=== PATIENT | male | born 1985 | race Caucasian/White ===

== ENCOUNTER → 2023-03-26 | Outpatient (CLI) | payer OTHER, SELFPAY ==
[2023-03-26 17:35] LABS: Absolute Lymphocyte Count 2.02 X10^3/uL (0.83-4.51); Absolute Neutrophil Count 7.6 X10^3/uL (2.0-7.7); Basophil% 0.9 % (0-1); Eosinophil# 0.28 X10^3/uL; Eosinophils% 2.6 % (0-5); Hematocrit 46.7 % (40-54); Hemoglobin 15.2 g/dL (13.0-16.5); Lymphocyte # 2.02 X10^3/ul (0.83-4.51); Lymphocyte % 18.7 % (19-41); Mean Corp Hgb Conc 32.5 g/dL (32-36); Mean Corpuscular Volume 89.1 fL (80-94); Mean Platelet Vol. 10.2 fl (6.2-12.0); Monocyte# 0.71 X10^3/uL; Monocyte% 6.6 % (0-10); NRBC Flagged by Analyzer 0 % (0-5); Neutrophil # 7.64 X10^3/uL (2.7-7.7); Neutrophil % 70.8 % (47-70); Platelet Count 282 K/mm3 (150-450); RBC Distribution Width CV 13.4 % (11.6-14.6); RBC Distribution Width SD 43.9 fl (35.1-43.9); Red Blood Count 5.24 M/mm3 (4.6-6.2); White Blood Count 10.8 K/mm3 (4.4-11.0)
[2023-03-26 18:06] LABS: Vitamin D,25 Hydroxy 15.9 ng/mL
[2023-03-26 18:25] LABS: ALB/GLOB Ratio 0.8 RATIO (0.9-2.4); AST(SGOT) 27 U/L (15-37); Alanine Aminotransfer ALT/SGPT 51 U/L (16-61); Albumin, Serum 3.6 g/dL (3.2-5.0); Alkaline Phosphatase 107 U/L (45-117); Anion Gap 4 (5-15); BUN 12 mg/dL (7-18); BUN/Creat Ratio 12.4 RATIO (10-20); Calcium,Total 9.3 mg/dL (8.5-10.1); Chloride 111 mmol/L (98-107); Cholesterol 171 mg/dL (200); Creatinine, Serum 0.97 mg/dL (0.70-1.30); EST Glomerular Filtration Rate 92 mL/min (>60); Est Glom Filt Rate - Afr Amer 111 mL/min (>60); Globulin 4.6 g/dL (2.2-4.2); Glucose 109 mg/dL (74-106); High Density Lipoprotein 58 mg/dL; Protein, Total 8.2 g/dL (6.4-8.2); Sodium Level 140 mmol/L (136-145); Thyroid Stim Hormone (TSH) 2.09 uIU/mL (0.358-3.74); Triglycerides 60 mg/dL; Very Low Density Lipoprotein 12 mg/dL (5-40)
== END | disposition home or self-care (01) ==
PROVIDERS: PCP Family Medicine; Referring Provider Family Medicine; Visit Provider Family Medicine
DX: Z13.1 Encounter for screening for diabetes mellitus (principal); E66.01 Morbid (severe) obesity due to excess calories; Z13.220 Encounter for screening for lipoid disorders
CPT/HCPCS: 36415; 80053; 80061; 82306; 84443; 85025

== ENCOUNTER 2023-06-17 06:57 | Day surgery (SDC) | payer OTHER, SELFPAY ==
[2023-06-17] VITALS (7 sets, daily range): BP systolic 116–142; BP diastolic 79–87; PULSE 92–108; RESP 18; TEMP 36.6–36.7; O2SAT 95–96; BMI 61.4
[2023-06-17] MEDS: Lactated Ringers 1,000 ML 15 ML IV (07:36)
[2023-06-17 07:57] LABS: Bedside Glucose 142 mg/dL (74-106)
--- NOTE | 2023-06-17 08:00 | COLBX_PTH ---
PATIENT: YUDITH DOMINGUEZ LOC: EN U#:[id number] AGE/SX: 37/M ROOM: RE06/17/[address]: Dr. David Vick MD : 1985 BED: DIS: 06/17/2023 SPEC #: [id number] RECD: 06/17/23 13:10 STATUS: ANTOINE ALEXA #: [id number] VICKIE: 06/17/23 08:[address]: David Vick DEPT: SURGICAL PATHOLOGY RECD BY: Janina Trejo ENTERED: 06/17/23 13:35 SP TYPE: COLON BX OTHR DR: Deepika Salter MD Tissues: Rectum, NOS Procedures: Surgery Specimen Level IV HEADER OPERATION: Colonoscopy, polypectomy PRE-OP DIAGNOSIS: Family history of malignant neoplasm of colon TISSUE SUBMITTED: Rectal polyp MICROSCOPIC DIAGNOSIS Rectal polyp, polypectomy: Hyperplastic polyp. DANYELL:apola 06/18/2023 MICROSCOPIC DESCRIPTION Slides are reviewed. GROSS DESCRIPTION Received in fixative is one container labeled with the patient's name and designated rectal polyp. The specimen consists of one irregular fragment of light arriaga soft tissue that measures 0.5 x 0.5 x 0.1 cm. The specimen is totally submitted in one cassette. / SJ:paola 06/17/2023 TC:1 CPT: 81752
--- NOTE | 2023-06-17 08:32 | HP.PCM.SX_ITS ---
HPI - General HPI Narrative Patient is a 37-year-old male here for screening colonoscopy. He is considered high risk as his mother had colon cancer in her 40s. He has never had a colonoscopy. He has had blood in his stool before but he believes is due to hemorrhoids. He denies any abdominal pain. [facility] Medical History (Updated 06/13/23 @ 16:21 by Lily Carrera) Alcohol use Anxiety Depression Diabetes Former smoker Gastric reflux History of pain when walking Hypertension Marijuana use Migraine headache Shortness of breath on exertion Wears glasses Home Medications fluoxetine 20 mg capsule 20 mg PO DAILY 04/22/23 [History Last Taken Unknown] hydroxyzine HCl 50 mg tablet 50 mg PO TID PRN anxiety 04/22/23 [History Last Taken Unknown] ergocalciferol (vitamin D2) 1,250 mcg (50,000 unit) capsule 1,250 mcg PO WE 06/13/23 [History Last Taken Unknown] metformin 500 mg tablet 500 mg PO BID 06/13/23 [History Last Taken Unknown] Allergy/AdvReac Type Severity Reaction Status Date / Time No Known Allergies Allergy Verified 06/17/23 07:31 Family History (Updated 04/22/23 @ 13:11 by Livia Reis) Mother Colon cancer Breast cancer Father Cancer esophageal Surgical History (Updated 06/13/23 @ 16:21 by Lily Carrera) No history of previous surgery Social History (Updated 04/22/23 @ 13:31 by Livia Reis) Smoking Status: Former smoker substance use type: marijuana ROS Constitutional Constitutional: Denies anorexia, chills or fatigue ENT HEENT: Denies abnormal hearing Cardiovascular Cardiovascular: Denies chest pain Respiratory/Chest Respiratory/Chest: Denies cough or dyspnea Gastrointestinal Gastrointestinal: Denies abdominal pain, nausea or vomiting Genitourinary Genitourinary: Denies change in urinary stream Musculoskeletal Musculoskeletal: Denies abnormal gait Integumentary Integumentary: Denies jaundice Neurologic Neurologic: Denies abnormal gait Vital Signs Vital Signs Vital Signs: 06/17/23 07:25 06/17/23 07:25 Temperature 97.8 F Temperature Source Temporal Pulse Rate 108 H Respiratory Rate 18 Respiratory Pattern Normal Blood Pressure 142/87 H Blood Pressure Mean 105 Blood Pressure Source Monitor Blood Pressure Position Sitting Blood Pressure Location Right Forearm Pulse Ox 95 Oxygen Delivery Method Room Air Weight Weight: 491 lb 10.093 oz Body Mass Index (BMI) 61.4 Physical Exam Const alert and oriented x3 HEENT normocephalic Eyes PERRL Resp normal respiratory effort and normal air movement Cardio regular rate and regular rhythm GI soft to palpation, non-tender and non-distended Extremity normal to inspection Results Lab / Micro Data Labs: Laboratory Results - last 24 hr 06/17/23 07:25: POC Glucose 142 H Assessment & Plan Assessment/Plan (1) Family history of malignant neoplasm of colon in first degree relative diagnosed when younger than 60 years of age: PLAN: I explained endoscopy in detail to the patient. I explained the risks including but not limited to stroke or heart attack with anesthesia, perforation of the GI tract, bleeding, infection. I explained that any of these could necessitate further emergency surgery. The patient understands and all questions were answered sufficiently. The patient wishes to proceed with procedure. David Vick MD Pager: [facility] [address] [place] [address], [address] [place] [address] Office:
--- NOTE | 2023-06-17 09:01 | OP.CCLET_ITS ---
06/17/2023 Deepika Salter Md Re : Colonoscopy procedure for Chino Soto Dear Joie This procedure was performed on Saturday, June 17, 2023. My impressions and recommendations are as follows: Impressions : - The entire examined colon is normal. - One polyp in the rectum, removed with a hot snare. Resected and retrieved. Recommendations : - Discharge patient to home. - Resume previous diet. - Continue present medications. - Await pathology results. - Repeat colonoscopy in 5 years for surveillance. My findings are described in the full procedure note, which is enclosed. If I can be of further assistance, please feel free to contact me at Doctor phone number(s): , Work: . Sincerely, David Vick MD 06/17/2023 9:01:21 AM This report has been signed electronically.
--- NOTE | 2023-06-17 09:01 | OP.COLON_ITS ---
Patient Name: Chino Soto Procedure Date: 06/17/2023 8:39 AM Date of : 1985 Age: 37 Procedure: Colonoscopy Indications: Screening in patient at increased risk: Colorectal cancer in mother before age 60 Providers: David Vick MD Medicines: Monitored Anesthesia Care Patient Profile: This is a 37 year old male. Refer to note in patient chart for documentation of history and physical. Last Colonoscopy: none. The patient's first colonoscopy is today. Complications: No immediate complications. Estimated blood loss: Minimal. Procedure: Pre-Anesthesia Assessment: - Prior to the procedure, a History and Physical was performed, and patient medications and allergies were reviewed. The patient's tolerance of previous anesthesia was also reviewed. The risks and benefits of the procedure and the sedation options and risks were discussed with the patient. All questions were answered, and informed consent was obtained. Prior Anticoagulants: The patient has taken no anticoagulant or antiplatelet agents. After reviewing the risks and benefits, the patient was deemed in satisfactory condition to undergo the procedure. After I obtained informed consent, the scope was passed under direct vision. Throughout the procedure, the patient's blood pressure, pulse, and oxygen saturations were monitored continuously. The Colonoscope was introduced through the anus and advanced to the cecum, identified by appendiceal orifice and ileocecal valve. The colonoscopy was performed without difficulty. The patient tolerated the procedure well. The quality of the bowel preparation was good. The ileocecal valve, appendiceal orifice, and rectum were photographed. Scope In: 8:51:03 AM Scope Withdrawal Time 0 hours 5 minutes 6 seconds Scope Out: 8:58:08 AM Total Procedure Duration Time 0 hours 7 minutes 5 seconds Findings: The entire examined colon appeared normal. A polyp was found in the rectum. The polyp was removed with a hot snare. Resection and retrieval were complete. Impression: - The entire examined colon is normal. - One polyp in the rectum, removed with a hot snare. Resected and retrieved. Recommendation: - Discharge patient to home. - Resume previous diet. - Continue present medications. - Await pathology results. - Repeat colonoscopy in 5 years for surveillance. Procedure Code(s): --- Professional --- 67931, Colonoscopy, flexible; with removal of tumor(s), polyp(s), or other lesion(s) by snare technique Diagnosis Code(s): --- Professional --- Z80.0, Family history of malignant neoplasm of digestive organs D12.8, Benign neoplasm of rectum CPT copyright 2021 [employer]. All rights reserved. The codes documented in this report are preliminary and upon recovery advocate review may be revised to meet current compliance requirements. David Vick MD 06/17/2023 9:01:21 AM This report has been signed electronically. Number of Addenda: 0 Note Initiated On: 06/17/2023 8:39 AM
== END 2023-06-17 09:37 | disposition home or self-care (01) ==
LOC: EN 07:00 → AC 07:00
PROVIDERS: PCP Family Medicine; Referring Provider Family Medicine; Visit Provider Surgery
PROC: 0DJD8ZZ Inspection of Lower Intestinal Tract, Via Natural or Artificial Opening Endoscopic (ICD-10-PCS; CPT 45378; principal; 2023-06-17 07:55)
DX: Z12.11 Encounter for screening for malignant neoplasm of colon (principal); E11.9 Type 2 diabetes mellitus without complications; K62.1 Rectal polyp; F12.90 Cannabis use, unspecified, uncomplicated; F41.9 Anxiety disorder, unspecified; F32.A Depression, unspecified; Z79.84 Long term (current) use of oral hypoglycemic drugs; Z79.899 Other long term (current) drug therapy; Z80.0 Family history of malignant neoplasm of digestive organs; Z87.891 Personal history of nicotine dependence
CPT/HCPCS: 45385; 82962; 88305; J7120

== ENCOUNTER → 2024-11-23 | Outpatient (CLI) | payer OTHER, SELFPAY ==
--- NOTE | 2024-11-22 17:50 | LES_PTH ---
PATIENT: YUDITH DOMINGUEZ LOC: [facility] U#:[id number] AGE/SX: 39/M ROOM: RE11/23/[address]: Deepika Salter MD : 1985 BED: DIS: 11/23/2024 SPEC #: [id number] RECD: 11/23/24 09:00 STATUS: ANTOINE MIGUELLillian #: [id number] VICKIE: 11/22/24 17:[address]: Deepika Salter DEPT: SURGICAL PATHOLOGY RECD BY: Shahzad Jordan Tissues: A - Skin of back, NOS Procedures: Surgery Specimen Level IV HEADER OPERATION: Skin biopsy PRE-OP DIAGNOSIS: Skin mole TISSUE SUBMITTED: A- Skin mole of lower back MICROSCOPIC DIAGNOSIS A. Skin, lower back, mole, shave biopsy: * Intradermal melanocytic nevus MICROSCOPIC DESCRIPTION Slides are reviewed. GROSS DESCRIPTION A. Received in formalin in a container labeled with the patient's name, date of , and skin biopsy is an unoriented and irregular shave biopsy of arriaga-brown skin measuring 1.0 x 0.8 cm with a depth of 0.1 cm. The epidermis is notable for a arriaga-goncalves, wrinkled, and polypoid-like projection measuring 0.8 x 0.8 x 0.5 cm, abutting the peripheral margin. The deep margin is inked green, it is trisected to reveal that the polypoid projection exhibits white-goncalves surfaces that appear confined to the epidermis. Submitted entirely in A1. [facility] 11-23-2024 CPT:90252
== END | disposition home or self-care (01) ==
PROVIDERS: PCP Family Medicine; Referring Provider Family Medicine; Visit Provider Family Medicine
DX: D22.5 Melanocytic nevi of trunk (principal)
CPT/HCPCS: 88305

== ENCOUNTER 2025-04-04 16:39 | Outpatient (CLI) | payer OTHER, SELFPAY ==
[2025-04-04 19:09] LABS: Cholesterol 183 mg/dL (<=200); Low Density Lipoprotein Calc. 110 mg/dL; Triglycerides 72 mg/dL; Very Low Density Lipoprotein 14 mg/dL (5-40); Vitamin D,25 Hydroxy 15.2 ng/mL (30-100); cholesterol:hdl ratio screen 3.11
== END 2025-04-04 23:59 | disposition home or self-care (01) ==
PROVIDERS: PCP Family Medicine; Referring Provider Family Medicine; Visit Provider Family Medicine
DX: R73.03 Prediabetes (principal); E66.01 Morbid (severe) obesity due to excess calories; Z13.220 Encounter for screening for lipoid disorders; E55.9 Vitamin D deficiency, unspecified
CPT/HCPCS: 36415; 80061; 82306; 83036; 84443